=== PATIENT | male | born 1995 | race Two or more races ===

== ENCOUNTER 2023-08-17 06:15 | Outpatient (REF) | payer OTHER, SELFPAY ==
--- NOTE | ~2023-08-17 | US_ITS ---
EXAMINATION: ULTRASOUND RENAL WITH DOPPLER CLINICAL INFORMATION: Hypertension. COMPARISON: None. TECHNIQUE: Real-time grayscale, color Doppler, and duplex Doppler evaluation of the kidneys and renal vasculature was performed. FINDINGS: RENAL MEASUREMENTS: Right: 9.8 x 4.6 x 4.6 cm (Sag x AP x TV) Left: 9.7 x 4.6 x 5.4 cm (Sag x AP x TV) The renal parenchyma appears normal. No hydronephrosis or nephrolithiasis. DOPPLER INTERROGATION: Aorta: 202 cm/sec Right Main Renal Artery: Proximal: 105 cm/sec Mid: 139 cm/sec Distal: 72 cm/sec Left Main Renal Artery: Proximal: 128 cm/sec Mid: 66 cm/sec Distal: 107 cm/sec Renal-Aortic Ratio (RAR): Right: Not calculated due to aortic peak systolic velocity in excess of 100 cm/s. Left: Not calculated, as above. Bilateral upper pole, interpolar and lower pole segmental arteriolar resistive indices are within normal limits. Bilateral upper pole, interpolar and lower pole segmental arteriolar pulse doppler waveforms are unremarkable, with uniformly rapid upstrokes and no parvus et tardus configuration. US/US renal doppler IMPRESSION: Unremarkable examination. No hemodynamically significant bilateral renal artery stenosis is seen.
== END 2023-08-17 06:16 | disposition home or self-care (01) ==
LOC: HO.UMASIMG 06:15
PROVIDERS: Visit Provider Internal Medicine
DX: I10 Essential (primary) hypertension (principal)
CPT/HCPCS: 93975